=== PATIENT | female | born 1950 ===

== ENCOUNTER 2018-02-18 20:52 | Emergency (ER) | payer MEDICAID ==
[2018-02-18 21:16] VITALS: TEMP 97.4
[2018-02-18 21:26] VITALS: RESP 18
[2018-02-18] MEDS ORDERED: Absorbable Gelatin Sponge Size 12-7 ONE (22:00)
[2018-02-18 22:02] LABS: BASO # 0.1 K/uL (0.0-0.2); BASO % 1.1 % (0.0-2.0); EOS # 0.5 K/uL (0.0-0.7); EOS % 7.1 % (0.0-4.0); LYMPH # 1.4 K/uL (1.0-4.3); LYMPH % 20.8 % (20.0-40.0); MEAN CELL VOLUME 86.7 fl (81.0-99.0); MEAN CORPUSCULAR HEMOGLOBIN 28.4 pg (27.0-31.0); MEAN CORPUSCULAR HGB CONC 32.8 g/dL (33.0-37.0); MEAN PLATELET VOLUME 6.9 fl (7.2-11.7); MONO # 0.6 K/uL (0.0-0.8); MONO % 9.1 % (0.0-10.0); NEUT # 4.3 K/uL (1.8-7.0); NEUT % 61.9 % (50.0-75.0); NRBC % 0.1 % (0.0-0.0); RBC 4.21 Mil/uL (3.80-5.20); RED CELL DISTRIBUTION WIDTH 17.2 % (11.5-14.5); WHITE BLOOD COUNT 6.9 K/uL (4.8-10.8)
[2018-02-18 22:08] LABS: INR 1.2
[2018-02-18 22:11] VITALS: BP 155/91; PULSE 88; O2SAT 97
[2018-02-18 22:11] LABS: PARTIAL THROMBOPLASTIN TIME 35.7 Seconds (25.6-37.1)
[2018-02-18 22:13] LABS: CALCIUM 8.7 mg/dL (8.4-10.2)
--- NOTE | 2018-02-18 22:32 | ED PDOC ---
Upper Extremity Pain/Injury <Latoya Hedrick - Last Filed: 02/20/18 00:07> Chief Complaint (Provider): Right 5th Digit Laceration History Per: Patient History/Exam Limitations: no limitations Onset/Duration Of Symptoms: Hrs Current Symptoms Are (Timing): Still Present Quality: "Pain" Additional Complaint(s): Keyanna Salas is a 67 year old female with a past medical history of HTN, end stage renal disease and dialysis (TTS), who presents to the emergency department complaining of pain and bleeding due to a right hand injury. Patient states she accidentally slammed her 4th and 5th finger with a heavy door. She further reports that her 5th finger is "severed" and her 4th finger has one cut, both bleeding. She states she applied a home made pressure dressing on the wound and the distal tip of her 5th finger is currently at home. PMD: No provider <Gerson Moscoso - Last Filed: 02/20/18 00:12> Time Seen by Provider: 02/18/18 21:09 Chief Complaint (Nursing): Finger,Hand,&Wrist Past Medical History Vital Signs: Last Vital Signs Temp 97.4 F L 02/18/18 21:15 Pulse 88 02/18/18 22:10 Resp 18 02/18/18 22:10 BP 155/91 H 02/18/18 22:10 Pulse Ox 97 02/19/18 21:57 <Latoya Hedrick - Last Filed: 02/20/18 00:07> Reviewed: Historical Data, Nursing Documentation, Vital Signs Vital Signs: Last Vital Signs Temp 97.4 F L 02/18/18 21:15 Pulse 88 02/18/18 22:10 Resp 18 02/18/18 22:10 BP 155/91 H 02/18/18 22:10 Pulse Ox 97 02/18/18 22:10 - Medical History PMH: HTN, End Stage Renal Disease - Surgical History Surgical History: No Surg Hx - Family History Family History: States: Unknown Family Hx - Immunization History Hx Tetanus Toxoid Vaccination: Yes <Gerson Moscoso - Last Filed: 02/20/18 00:12> - Home Medications Home Medications: Ambulatory Orders Medication Instructions Recorded Cephalexin [cephalexin] 500 mg PO BID #14 cap 02/18/18 oxyCODONE/Acetaminophen [Percocet 1 ea PO Q6 PRN #6 tab 02/18/18 5/325 mg Tab] - Allergies Allergies/Adverse Reactions: Allergies Allergy/AdvReac Type Severity Reaction Status Date / Time No Known Allergies Allergy Verified 02/18/18 21:03 Review of Systems ROS Statement: Except As Marked, All Systems Reviewed And Found Negative Musculoskeletal: Positive for: Hand Pain (4th and 5th fingers with bleeding ) <Gerson Moscoso - Last Filed: 02/20/18 00:12> Physical Exam - Reviewed Nursing Documentation Reviewed: Yes Vital Signs Reviewed: Yes - Physical Exam Appears: Positive for: No Acute Distress. Negative for: Uncomfortable Head Exam: Positive for: ATRAUMATIC, NORMOCEPHALIC Eye Exam: Positive for: Normal appearance, EOMI, PERRL Cardiovascular/Chest: Positive for: Regular Rate, Rhythm. Negative for: Murmur Respiratory: Positive for: Normal Breath Sounds. Negative for: Respiratory Distress Extremity: Positive for: Other ([4th finger: laceration on the volar aspect of the distal phalanx of her 4th finger; irregular laceration approximately 3cm, no nail avulsion and laceration does not involve nail bed; FROM of 4th finger; flexion and extension on the DIP, PIP, and FROM of MCP with no bleeding at this time] 5th finger: distal tip of the distal phalanx on 5th finger is amputated and bleeding; has PIP and MCP; nail and nailbed avulsion]) Neurologic/Psych: Positive for: Alert, Oriented (x3). Negative for: Motor/Sensory Deficits <Gerson Moscoso - Last Filed: 02/20/18 00:12> - Laboratory Results Result Diagrams: 02/18/18 21:57 02/18/18 21:57 <Latoya Hedrick - Last Filed: 02/20/18 00:07> - Laboratory Results Result Diagrams: 02/18/18 21:57 02/18/18 21:57 - ECG O2 Sat by Pulse Oximetry: 97 (RA) Pulse Ox Interpretation: Normal <Gerson Moscoso - Last Filed: 02/20/18 00:12> Medical Decision Making Medical Decision Making: Initial Time: 21:20 Initial Impression: Amputation of the distal tip of 5th finger and laceration of the distal tip of the 4th finger. Initial Plan: --Type and Screen --BMP --CBC with differential --PTT --PT --Right hand x-ray --Lidocaine 1% 5 ml IJ --Morphine 2 mg IVP X-Ray FINDINGS: BONES: There is partial osseous amputation along with soft tissue amputation of the 5th most distal phalangeal tuft portion. Here overlying bandaging is present. No 4th digit osseous fracture or amputation noted. JOINTS: Extensive atherosclerotic vascular disease. Probable ossific debris and/or old osseous chip avulsion fracture fragment ulnar side 3rd DIP joint. Apparently not the current area of interest. SOFT TISSUES: Normal. OTHER FINDINGS: None. IMPRESSION: Small partial osseous and soft tissue avulsion most distal aspect 5th digit distal phalangeal tuft. Soft tissue injury changes 4th and 5th digit. 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 Time: 23:[address] Rubio and the surgeon traffic control flagger, who recommend X-ray pressure dressing on both fingers. X-ray was reviewed with me and recommends follow up with him on Saturday. Lacerations on 4th finger was repaired with digital block. Pressure dressing was applied on the 5th finger and the bleeding stopped. Scribe Attestation: Documented by Ren Navarro, acting as a scribe for Gerson Soni MD Provider Scribe Attestation: All medical record entries made by the Scribe were at my direction and personally dictated by me. I have reviewed the chart and agree that the record accurately reflects my personal performance of the history, physical exam, medical decision making, and the department course for this patient. I have also personally directed, reviewed, and agree with the discharge instructions and disposition. <Gerson Moscoso - Last Filed: 02/20/18 00:12> Procedures - Laceration/Wound Repair Right Hand Wound Length (cm): 2.5 Wound's Depth, Shape: into muscle, flap Wound Explored: clean Irrigated w/ Saline (ccs): 200 Betadine Prep?: No Anesthesia: 1% Lidocaine (digital block) Volume Anesthetic (ccs): 4 Wound Repaired With: Sutures (4) Suture Size/Type: 4:0, proline Number of Sutures: 4 Wound Complexity: Intermediate Sterile Dressing Applied?: Yes <Latoya Hedrick - Last Filed: 02/20/18 00:07> Disposition <Latoya Hedrick - Last Filed: 02/20/18 00:07> - Patient ED Disposition Is Patient to be Admitted: No Doctor Will See Patient In The: Office Counseled Patient/Family Regarding: Studies Performed, Diagnosis, Need For Followup - Disposition Disposition: Routine/Home Disposition Time: 23:00 <Gerson Moscoso - Last Filed: 02/20/18 00:12> - Clinical Impression Clinical Impression: Finger laceration, Finger amputation, traumatic - Disposition Referrals: Martin Rubio MD [Medical Doctor] - Condition: GOOD Additional Instructions: KEYANNA MUJICATA, thank you for letting us take care of you today. Your provider was Gerson Moscoso MD and you were treated for RT HAND INJURY. The emergency medical care you received today was directed at your acute symptoms. If you were prescribed any medication, please fill it and take as dire cted. It may take several days for your symptoms to resolve. Return to the Emergency Department if your symptoms worsen, do not improve, or if you have any other problems. Please contact your doctor or call one of the physicians/clinics you have been referred to that are listed on the Patient Visit Information form that is included in your discharge packet. Bring any paperwork you were given at d ischarge with you along with any medications you are taking to your follow up visit. Our treatment cannot replace ongoing medical care by a primary care provider outside of the emergency department. Thank you for allowing the [facility] team to be part of your care today. If you had an X-Ray or CT scan: A Radiologist will review the ED reading if any change in treatment is needed we will contact you. If you had a blood, urine, or wound culture: It will take several days for the results, if any change in treatment is needed we will contact you. If you had an STI test: It will take 48 hours for the results. Please call after 1 week if you have not heard back. Prescriptions: Cephalexin [cephalexin] 500 mg PO BID #14 cap oxyCODONE/Acetaminophen [Percocet 5/325 mg Tab] 1 ea PO Q6 PRN #6 tab PRN Reason: Pain, Severe (8-10) Instructions: Laceration Repair, Amputation of the Finger or Fingertip (DC) Forms: [employer] (Croatian) Print Language: HAITIAN
[2018-02-18] MEDS ORDERED: Lidocaine 1% Inj (20ml) IJ ONE (22:45)
[2018-02-18] MEDS ORDERED: Lidocaine 1% Inj (20ml) ONE (22:50)
--- NOTE | 2018-02-19 09:00 | RAD ---
PROCEDURE: Right Hand Radiographs. HISTORY: finger injury COMPARISON: None. FINDINGS: BONES: There is partial osseous amputation along with soft tissue amputation of the 5th most distal phalangeal tuft portion. Here overlying bandaging is present. No 4th digit osseous fracture or amputation noted. JOINTS: Extensive atherosclerotic vascular disease. Probable ossific debris and/or old osseous chip avulsion fracture fragment ulnar side 3rd DIP joint. Apparently not the current area of interest. SOFT TISSUES: Normal. OTHER FINDINGS: None. IMPRESSION: Small partial osseous and soft tissue avulsion most distal aspect 5th digit distal phalangeal tuft. Soft tissue injury changes 4th and 5th digit. 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
== END 2018-02-18 23:54 | disposition home or self-care (01) ==
LOC: H.ER 20:52
DX: S61.204A Unspecified open wound of right ring finger without damage to nail, initial encounter (principal); S68.126A Partial traumatic metacarpophalangeal amputation of right little finger, initial encounter; W23.0XXA Caught, crushed, jammed, or pinched between moving objects, initial encounter; Y92.89 Other specified places as the place of occurrence of the external cause; I12.0 Hypertensive chronic kidney disease with stage 5 chronic kidney disease or end stage renal disease; Z99.2 Dependence on renal dialysis

== ENCOUNTER 2018-02-19 17:23 | Emergency (ER) | payer MEDICAID, OTHER ==
[2018-02-19 17:23] VITALS: BMI 19.9
[2018-02-19 17:33] VITALS: O2SAT 99
[2018-02-19] MEDS ORDERED: Absorbable Gelatin Sponge Size 12-7 ONE (20:13)
[2018-02-19 22:53] VITALS: BP 122/60; PULSE 78; RESP 18; TEMP 98
--- NOTE | 2018-02-21 11:39 | ED PDOC ---
Upper Extremity Pain/Injury Time Seen by Provider: 02/19/18 19:15 Chief Complaint (Nursing): Finger,Hand,&Wrist Additional Complaint(s): 67 year old female with PMH of HTN, CHF, and end stage renal disease presents to the emergency department complaining of right hand pain and bleeding x one day. Patient was seen in this emergency department last night by Dr. Moscoso for a traumatic injury of the fourth and fifth digits on the right hand. Patient's grandson shut her right hand in a door, completely removing the tip of her 5th digit and causing a laceration on her 4th digit. The laceration on her 4th digit was repaired with sutures and the fifth digit was dressed to stop the bleeding. Once bleeding was controlled and the wounds were covered, patient was discharged home to follow up with Dr. Martin Rubio, the hand specialist. Patient and family are here today complaining of persistent bleeding and the fact that Dr. Rubio's office does not take their insurance. Denies numbness, paresthesias, wound drainage, fevers, chills. Past Medical History Reviewed: Historical Data, Nursing Documentation, Vital Signs Vital Signs: Last Vital Signs Temp 98 F 02/19/18 22:50 Pulse 78 02/19/18 22:50 Resp 18 02/19/18 22:50 BP 122/60 02/19/18 22:50 Pulse Ox 99 02/19/18 22:50 - Medical History PMH: CHF, HTN, End Stage Renal Disease, Chronic Kidney Disease - Family History Family History: States: Unknown Family Hx - Immunization History Hx Tetanus Toxoid Vaccination: Yes Hx Influenza Vaccination: No Hx Pneumococcal Vaccination: No - Home Medications Home Medications: Ambulatory Orders Medication Instructions Recorded Carvedilol [Coreg] 6.25 mg PO Q12 #60 tab 12/21/17 Torsemide [Demadex] 100 mg PO TTS #30 tab 12/21/17 amLODIPine [Norvasc] 10 mg PO DAILY #30 tab 12/21/17 hydrALAZINE [Apresoline] 50 mg PO Q8H #90 tab 12/21/17 Acetaminophen [Tylenol 325mg tab] 650 mg PO Q6 PRN tab 12/28/17 Cephalexin [cephalexin] 500 mg PO BID #14 cap 02/18/18 oxyCODONE/Acetaminophen [Percocet 1 ea PO Q6 PRN #6 tab 02/18/18 5/325 mg Tab] - Allergies Allergies/Adverse Reactions: Allergies Allergy/AdvReac Type Severity Reaction Status Date / Time No Known Allergies Allergy Verified 02/20/18 14:24 Review of Systems ROS Statement: Except As Marked, All Systems Reviewed And Found Negative Constitutional: Negative for: Fever, Chills Cardiovascular: Negative for: Chest Pain, Palpitations Respiratory: Negative for: Shortness of Breath Gastrointestinal: Negative for: Nausea, Vomiting, Abdominal Pain Musculoskeletal: Positive for: Hand Pain (right 4th and 5th digits), Other (uncontrolled bleeding of right 4th digit) Skin: Positive for: Lesions (sutured laceration right 4th digit) Neurological: Negative for: Weakness, Numbness Physical Exam - Reviewed Nursing Documentation Reviewed: Yes Vital Signs Reviewed: Yes - Physical Exam Appears: Positive for: Well, Non-toxic, No Acute Distress Head Exam: Positive for: ATRAUMATIC, NORMAL INSPECTION, NORMOCEPHALIC Skin: Positive for: Warm, Dry Eye Exam: Positive for: EOMI, Normal appearance, PERRL Neck: Positive for: Normal, Painless ROM Cardiovascular/Chest: Positive for: Regular Rate, Rhythm Respiratory: Positive for: CNT, Normal Breath Sounds Pulses-Radial (L): 2+ Pulses-Radial (R): 2+ Extremity: Positive for: Normal ROM, Tenderness (right hand, tips of 4th and 5th digit), Deformity (distal phalanx missing from right 5th digit, bleeding controlled), Other (sutured laceration of right 4th digit; no active bleeding when dressing removed). Negative for: Swelling Neurologic/Psych: Positive for: Alert, Oriented, Gait (steady). Negative for: Motor/Sensory Deficits - ECG O2 Sat by Pulse Oximetry: 99 Medical Decision Making Medical Decision Makin Patient not registered correctly, unable to see information from last night's visit to the ED. Will speak with registration to resolve the issue in order to access records. Spoke with Dr. Moscoso who treated patient yesterday for traumatic injury of the right hand. Recommends re-dressing wound with gel foam pressure dressing and reiterating followup with Dr. Martin Rubio as discussed. States that patient needs to followup regardless of insurance issue, as patient's injury must be evaluated. Initial Plan: * re-dress wound * reiterate followup On evaluation, bandage over right 4th digit soaked through with blood, dressing to 5th digit intact. Wound re-dressed by nursing. Gel foam applied and hand wrapped with gauze. Bleeding controlled. Discussed situation with pt and family, educated them on importance and necessity of followup. Pt and family understand and agree with plan of care. Pt stable for discharge home. Impression: Traumatic digit amputation; laceration Plan: * followup with Dr. Martin Morris previously directed * keep wounds clean, dry, covered * return for new/worsening symptoms Disposition - Clinical Impression Clinical Impression: Finger injury - Disposition Referrals: Martin Rubio MD [Medical Doctor] - Disposition: Routine/Home Disposition Time: 21:00 Condition: STABLE Additional Instructions: Followup with hand doctor Keep dressing intact and wound covered and dry tylenol for pain Return to ER if symptoms worsen or new symptoms develop Forms: [employer] (Hungarian) Print Language: UPPER SORBIAN
== END 2018-02-19 22:50 | disposition home or self-care (01) ==
LOC: MERGE 17:23 → H.ER 17:23
DX: M79.644 Pain in right finger(s) (principal)